=== PATIENT | female | born 1985 | race Caucasian/White ===

== ENCOUNTER → 2016-08-26 | Outpatient (CLI) | payer OTHER ==
[~2016-08-26] MED LIST: BCPILLS PO; DXY100 PO; METR-163 PO; [UNRECOGNIZED DRUG - CODE]; [UNRECOGNIZED DRUG - OTHER]
== END | disposition home or self-care (01) ==
LOC: C.PAPS 12:13
PROVIDERS: ATTEND Obstetrics & Gynecology
DX: Z12.4 Encounter for screening for malignant neoplasm of cervix (principal); N87.0 Mild cervical dysplasia

== ENCOUNTER → 2017-01-12 | Outpatient (CLI) | payer BC ==
--- NOTE | 2017-01-12 10:00 | Progress Note ---
Progress Note Date of Service Jan 12, 2017. Progress Note I met Esther in the radiology suite for her planned procedure, and confirmed her consent. She was positioned in lithotomy, graves spec placed vaginally, and cervix prepped with betadine. Single tooth tenaculum applied to anterior lip and Norris's cannula placed in external os. Patient repositioned and dye infused under fluoroscopy. See radiology report for interpretation. All instrumentation was then removed and the patient was in good condition having tolerated the procedure well when I left her in the radiology suite.
--- NOTE | 2017-01-12 10:24 | DIAGNOSTIC IMAGING REPORT ---
HYSTEROSALPINGOGRAM CLINICAL HISTORY: FERTILITY TESTING COMPARISON STUDY: No previous studies for comparison. FINDINGS: Fluoroscopic assistance was provided during a hysterosalpingogram. 18 seconds of fluoroscopic time was utilized. Both fallopian tubes filled a normal fashion. There was free spillage bilaterally. IMPRESSION: Both fallopian tubes are patent Electronically signed by: Mehran Oakes M.D. 01/12/2017 10:23 AM Dictated Date/Time: 01/12/2017 10:22 AM
== END | disposition home or self-care (01) ==
LOC: C.RAD 09:03
PROVIDERS: ATTEND Specialist
DX: Z31.41 Encounter for fertility testing (principal)

== ENCOUNTER → 2017-02-26 | Outpatient (CLI) | payer BC | END | disposition home or self-care (01) | LOC: C.LAB 07:25 | PROVIDERS: ATTEND Obstetrics & Gynecology Reproductive Endocrinology | DX: Z31.41 Encounter for fertility testing (principal) ==

== ENCOUNTER → 2017-05-05 | Outpatient (CLI) | payer OTHER | END | disposition home or self-care (01) | LOC: C.LAB 07:46 | PROVIDERS: ATTEND Obstetrics & Gynecology Reproductive Endocrinology | DX: Z31.41 Encounter for fertility testing (principal) ==

== ENCOUNTER → 2017-06-03 | Outpatient (CLI) | payer OTHER | END | disposition home or self-care (01) | LOC: C.LAB 07:59 | PROVIDERS: ATTEND Obstetrics & Gynecology Reproductive Endocrinology | DX: Z31.41 Encounter for fertility testing (principal) ==